=== PATIENT | female | born 1960 | race Two or more races ===

== ENCOUNTER 2024-07-16 15:44 | Emergency (ER) | payer OTHER ==
[~2024-07-16] VITALS: Ht 172.7 cm; Wt 77.3 kg
[2024-07-16 15:48] VITALS: BP 140/79
[2024-07-16 16:27] LABS: Basophils # (auto) 0 10 ^3/uL (0-0.2); Basophils % (auto) 0.7 % (0.0-2.0); Eosinophils # (auto) 0.1 10 ^3/uL (0-0.8); Eosinophils % (auto) 1.1 % (0.0-7.0); Hematocrit 41.1 % (36.0-46.0); Hemoglobin 13.8 g/dL (12.2-16.2); Lymphocytes # (auto) 2.9 10 ^3/uL (0.4-5.4); Lymphocytes % (auto) 45.3 % (10.0-50.0); Mean Corpuscular Hemoglobin 30.4 pg (28.0-32.0); Mean Corpuscular Hgb Conc. 33.6 g/dL (32.0-36.0); Mean Corpuscular Volume 90.6 fL (80.0-100.0); Monocytes # (auto) 0.4 10 ^3/uL (0-1.3); Monocytes % (auto) 6.6 % (0.0-12.0); Neutrophils % (auto) 46.3 % (37.0-80.0); Nucleated Red Blood Cells % 0.1 %; Red Blood Cells 4.53 10^6/uL (4.0-5.20); Red Cell Distribution Width 13.8 % (11.8-14.3); White Blood Cell 6.4 10^3/uL (4.4-10.8)
[2024-07-16 16:44] LABS: Alanine Aminotransferase 14 U/L (7-40); Albumin 4.1 g/dL (3.2-4.8); Alkaline Phosphatase 59 U/L (46-116); Anion Gap 4 (5-15); Aspartate Aminotransferase 15 U/L (13-40); BUN/Creatinine Ratio 12.2 (10.0-20.0); Blood Urea Nitrogen 11 mg/dL (9-23); Calcium 9.2 mg/dL (8.7-10.4); Carbon Dioxide 29 mmol/L (20-30); Chloride 108 mmol/L (98-107); Glucose 109 mg/dL (74-106); Potassium 4.4 mmol/L (3.5-5.1); Sodium 141 mmol/L (136-145)
[2024-07-16 16:45] LABS: Bilirubin, Total 0.3 mg/dL (0.2-1.0); Total Protein 6.4 g/dL (5.7-8.2)
[2024-07-16 17:37] VITALS: PULSE 59
[2024-07-16] MEDS: methylPREDNISolone SOD SUCC 125 MG/2 ML VL IM ONE (19:00)
[2024-07-16] MEDS ORDERED: PRED20TA2 PO (19:03)
[2024-07-16] MEDS ORDERED: ALBU108A5 IN (19:03)
[2024-07-16] MEDS ORDERED: AUG875T PO (19:03)
[2024-07-16] MEDS: ALBUTEROL SULF 2.5 MG/0.5ML(0.5%) NEB SOLN NEB ONE (19:10)
[2024-07-16] MEDS: IPRATROPIUM BROM 0.5 MG/2.5ML INH SOL NEB ONE (19:10)
[2024-07-16 19:11] VITALS: RESP 18; O2SAT 96
== END 2024-07-16 21:14 | disposition home or self-care (01) ==
LOC: ER 15:44
DX: R07.81 Pleurodynia (principal); J18.9 Pneumonia, unspecified organism
CPT/HCPCS: 36415; 71045; 80053; 84484; 85025; 93005; 94640

== ENCOUNTER 2025-11-05 06:50 | Inpatient (IN) | payer OTHER ==
[~2025-11-05] VITALS: Ht 177.8 cm; Wt 91.7 kg
[~2025-11-05 06:50] MED LIST: ALBU108A5 IN; AUG875T PO; PRED20TA2 PO
--- NOTE | 2025-11-05 07:17 | ED.PDOC ---
Altered Mental Status HPI Comments 65-year-old female presents here with acute confusion that began 1 day ago. Granddaughters at bedside who states that 2 days ago patient was having left lower back pain and went to PCP prescribed baclofen. She states there 7 pills missing. She is unclear if this was a results of the baclofen. But she states since then patient has had severe vomiting and diarrhea. She does report dysuria and states that she often gets UTIs. Denies any fever or chills. Patient reports crampy abdominal pain. Chief Complaint: ALOC Time Seen by MD: 06:58 Allergies: Coded Allergies: Hydromorphone (Verified Allergy, Unknown, 07/16/24) Morphine (Verified Allergy, Unknown, 07/16/24) Home Meds Active Scripts Albuterol Sulfate (Albuterol Sulfate Hfa) 108 Mcg/Act Aer, 108 MCG IN TID PRN, #1 AER Prov:NADINE PIZARRO 07/16/24 Prednisone (Prednisone) 20 Mg Tab, 20 MG PO DAILY for 5 Days, #5 MG Prov:NADINE PIZARRO 07/16/24 Amoxicillin & Pot Clavulanate (AUGMENTIN TABLET) 875 Mg Tb, 875 MG PO BID for 7 Days, #14 TAB Prov:NADINE PIZARRO 07/16/24 Mode of Arrival: Ambulatory Past Medical History PAST MEDICAL HISTORY: Angina, CAD Surgical History (Other): Partial colectomy secondary to small-bowel obstruction SENIOR ACCOUNTING SPECIALIST History: No Pertinent SENIOR ACCOUNTING SPECIALIST History Physical Exam Exam Comments Actively retching General Appearance: Moderate Distress, Other (Significant mucous membranes dryness) HEENT: Normal ENT Inspection, Pharynx Normal, TMs Normal Neck: Full Range of Motion, Non-Tender, Normal, Normal Inspection Respiratory: Chest Non-Tender, Lungs Clear, No Accessory Muscle Use, No Respiratory Distress, Normal Breath Sounds Cardiovascular: No Edema, No JVD, No Murmur, No Gallop, Normal Peripheral Pulses, Tachycardia Breast Exam: Deferred Gastrointestinal: No Organomegaly, Non Tender, No Pulsatile Mass, Normal Bowel Sounds, Soft Genitalia: Other (Diffuse abdominal tenderness to palpation) Pelvic: Deferred Rectal: Deferred Extremities: No calf tenderness, Normal capillary refill, Normal inspection, Normal range of motion, Non-tender, No pedal edema Musculoskeletal : Apperance: Normal Neurologic: Alert, Normal Affect, Other (Patient aware of situation and where we are. But does not know what month or year) Cerebellar Function: Tremor Reflexes: Normal Skin: Dry, Normal Color, Warm Lymphatic: No Adenopathy EKG EKG : Comments Rate of [address] changes with diffuse T-wave flattening in multiple leads. Inverted T-wave in V2 V3 V4. Borderline QT prolongation at 487 Was a procedure done? Was a procedure done?: No Differential Diagnosis (ALOC) Differential Diagnosis: Dehydration, Hypoglycemia, DKA, Encephalopathy, Sepsis, Closed Head Injury, Other (Small-bowel obstruction, colitis) X-Ray, Labs, Meds, VS Vital Signs Date Time Temp Pulse Resp B/P (MAP) Pulse Ox O2 Delivery O2 Flow Rate FiO2 11/05/25 13:42 66 17 156/76 (102) 98 11/05/25 11:30 67 18 159/83 (108) 99 11/05/25 10:00 59 16 166/85 (112) 98 11/05/25 09:20 57 11/05/25 08:38 65 12 100 Room Air* 0 21 11/05/25 08:38 98.8 65 12 176/89 (118) 100 98.8 11/05/25 06:53 98.3 82 20 180/115 98 98.3 Lab Test 11/05/25 14:03 11/05/25 10:30 11/05/25 09:30 11/05/25 08:39 Range/Units Troponin I High Sensitivity 87 *H 56 *H 56 *H </=34 ng/L Urine Color Yellow Yellow Urine Clarity Clear Clear Urine pH 5.5 5.0-9.0 Urine Specific [place] 1.023 1.001-1.035 Urine Protein 1+ H Negative Urine Ketones 2+ H Negative Urine Blood Negative Negative /uL Urine Nitrite Negative Negative Urine Bilirubin Negative Negative Urine Urobilinogen Normal Negative mg/dL Urine Leukocyte Esterase Negative Negative /uL Urine RBC 2 0 - 4 /hpf Urine Microscopic WBC 1 0-5 /HPF Urine Squamous Epithelial Cells Few <5 /hpf Urine Bacteria None seen None Seen /hpf Urine Mucus Few None Seen Urine Glucose Normal Normal mg/dL Urine Opiates Screen Neg NEGATIVE Urine Fentanyl Screen Neg NEGATIVE Urine Barbiturates Screen Neg NEGATIVE Urine Phencyclidine Screen Neg NEGATIVE Urine Amphetamines Screen Neg NEGATIVE Urine Benzodiazepines Screen Pos NEGATIVE Urine Cocaine Screen Neg NEGATIVE Urine Cannabinoids Screen Pos NEGATIVE Test 11/05/25 07:30 11/05/25 07:07 Range/Units White Blood Count 11.3 H 4.4-10.8 10^3/uL Red Blood Count 4.78 4.0-5.20 10^6/uL Hemoglobin 14.3 12.2-16.2 g/dL Hematocrit 43.1 36.0-46.0 % Mean Corpuscular Volume 90.1 80.0-100.0 fL Mean Corpuscular Hemoglobin 29.9 28.0-32.0 pg Mean Corpuscular Hemoglobin Concent 33.2 32.0-36.0 g/dL Red Cell Distribution Width 14.3 11.8-14.3 % Platelet Count 235 140-450 10^3/uL Mean Platelet Volume 8.3 6.9-10.8 fL Neutrophils (%) (Auto) 74.6 37.0-80.0 % Lymphocytes (%) (Auto) 18.8 10.0-50.0 % Monocytes (%) (Auto) 5.4 0.0-12.0 % Eosinophils (%) (Auto) 0.4 0.0-7.0 % Basophils (%) (Auto) 0.8 0.0-2.0 % Neutrophils # (Auto) 8.4 1.6-8.6 10 ^3/uL Lymphocytes # (Auto) 2.1 0.4-5.4 10 ^3/uL Monocytes # (Auto) 0.6 0-1.3 10 ^3/uL Eosinophils # (Auto) 0 0-0.8 10 ^3/uL Basophils # (Auto) 0.1 0-0.2 10 ^3/uL Nucleated Red Blood Cells 0.1 % Sodium Level 145 136-145 mmol/L Potassium Level 3.2 L 3.5-5.1 mmol/L Chloride Level 110 H 98-107 mmol/L Carbon Dioxide Level 21 20-31 mmol/L Anion Gap 14 5-15 Blood Urea Nitrogen 8 L 9-23 mg/dL Creatinine 1.10 H 0.550-1.02 mg/dL Glomerular Filtration Rate Calc 55 >90 mL/min BUN/Creatinine Ratio 7.3 L 10.0-20.0 Serum Glucose 148 H 74-106 mg/dL Calcium Level 9.7 8.7-10.4 mg/dL Total Bilirubin 0.8 0.2-1.0 mg/dL Aspartate Amino Transferase (AST) 31 13-40 U/L Alanine Aminotransferase (ALT) 30 7-40 U/L Alkaline Phosphatase 87 46-116 U/L Troponin I High Sensitivity 47 *H </=34 ng/L Total Protein 7.8 5.7-8.2 g/dL Albumin 4.6 3.2-4.8 g/dL POC Glucose 169 H 70-106 mg/dl Current Medications Medications (Trade) Dose Ordered Sig/Galindo Route Start Time Stop Time Status Last Admin Sodium Chloride 2,050 ml @ 2,050 mls/hr ONCE ONCE IV 11/05/25 07:15 11/05/25 08:14 DC 11/05/25 08:20 Ondansetron HCl (Zofran) 4 mg ONCE ONCE IV 11/05/25 07:15 11/05/25 07:16 DC 11/05/25 08:49 Midazolam HCl (Versed Injection) 1 mg ONCE ONCE IV 11/05/25 08:30 11/05/25 08:31 DC 11/05/25 08:49 Potassium Bicarbonate (Klor-Con/Ef) 50 meq ONCE ONCE PO 11/05/25 14:00 11/05/25 14:04 DC 11/05/25 14:29 65-year-old female presents here with altered level of consciousness, and vomiting. Two days ago patient was having back pain and PCP prescribed baclofen. Patient has been taking baclofen and and yesterday started having significant diarrhea and vomiting. She is acutely confused. Daughter states that she saw her come out of the room without pants on. Which is unlike her. On my examination patient is actively retching, does not know the month and year. She is agitated and I have had to give her Versed to calm her down. Mucous membranes are very dry and therefore I have given her 2 L of normal saline here in the ER. Additionally I have given her Zofran. At this time CBC has been done which is unremarkable. CMP demonstrates mild hypokalemia of 3.2, a troponin that has been increasing in value. Urine with 2+ ketones. Consistent with dehydration. CT abdomen pelvis and CT scan of the brain has been done both of which are unremarkable. Chest x-ray with no evidence of acute pathology. At this time Dr. Avelar was evaluated the patient. Initially felt patient was safe to go home. However patient began have active emesis soon af ter an up trending troponin. There is concern for possible baclofen toxicity. At this time Dr. Pollard was admitted with the patient. Time of 1ST Reevaluation: 11:11 Reevaluation 1ST: Improved Patient Education/Counseling: Diagnosis, Treatment Family Education/Counseling: Diagnosis, Treatment SEPSIS Sepsis Screen Date sepsis recognized/suspect: Nov 05, 2025 Time Sepsis recognized/suspect: 658 Recent Procedure: No On Antibiotic Therapy: No Respiratory Rate >20: No Heart Rate >90: No Temp<36 C (96.8 F) or >38.3 C: No SBP <90 or MAP <65 mmHG: No New Acute Mental Status Change: No Is the patient on CPAP, BIPAP,: No Physician Orders Chest Portable (11/05/25 06:59) Finished Stock Inspector (11/05/25 06:59) Head Without Contrast (11/05/25 06:59) Electrocardigram (11/05/25 07:59) Electrocardigram (11/05/25 09:59) Clostridium Difficile Toxin (11/05/25 07:07) Ct Ab Pel Wo Con-No Oral Or Iv (11/05/25 07:18) Insert/Manage Urinary Catheter QSHIFT (11/05/25 09:32) Urine Bacterial Culture (11/05/25 09:32) Vital Signs Date Time Temp Pulse Resp B/P (MAP) Pulse Ox O2 Delivery O2 Flow Rate FiO2 11/05/25 13:42 66 17 156/76 (102) 98 11/05/25 11:30 67 18 159/83 (108) 99 11/05/25 10:00 59 16 166/85 (112) 98 11/05/25 09:20 57 11/05/25 08:38 65 12 100 Room Air* 0 21 11/05/25 08:38 98.8 65 12 176/89 (118) 100 98.8 11/05/25 06:53 98.3 82 20 180/115 98 98.3 Laboratory Tests Test 11/05/25 07:30 White Blood Count 11.3 10^3/uL (4.4-10.8) H Medications Medications Dose Ordered Sig/Galindo Route Start Time Stop Time Status Last Admin Dose Admin Midazolam HCl 1 mg ONCE ONCE IV 11/05/25 08:30 11/05/25 08:31 DC 11/05/25 08:49 Ondansetron HCl 4 mg ONCE ONCE IV 11/05/25 07:15 11/05/25 07:16 DC 11/05/25 08:49 Potassium Bicarbonate 50 meq ONCE ONCE PO 11/05/25 14:00 11/05/25 14:04 DC 11/05/25 14:29 Sodium Chloride 2,050 ml @ 2,050 mls/hr ONCE ONCE IV 11/05/25 07:15 11/05/25 08:14 DC 11/05/25 08:20 Departure 1 Departure Time of Disposition: 17:19 Impression: Primary Impression: Altered mental status Qualified Codes: R40.4 - Transient alteration of awareness Additional Impressions: Vomiting Qualified Codes: R11.10 - Vomiting, unspecified Elevated troponin I measurement Baclofen overdose Qualified Codes: T42.8X1A - Poisoning by antiparkinsonism drugs and other central muscle-tone depressants, accidental (unintentional), initial encounter Dehydration Disposition: ADMITTED INPATIENT Condition: Fair Critical Care Note Critical Care Time?: No Stability Stability form required: No Heart Score Heart Score: Heart Score Response (Comments) Value History N/A 0 EKG N/A 0 Age N/A 0 Risk Factors N/A 0 Troponin N/A 0 Total 0 ELIZA GAITAN MD Nov 05, 2025 07:17
[2025-11-05 07:46] LABS: Hematocrit 43.1 % (36.0-46.0); Hemoglobin 14.3 g/dL (12.2-16.2); Mean Corpuscular Hemoglobin 29.9 pg (28.0-32.0); Mean Corpuscular Volume 90.1 fL (80.0-100.0); Nucleated Red Blood Cells % 0.1 %
[2025-11-05 07:58] LABS: Alanine Aminotransferase 30 U/L (7-40); Albumin 4.6 g/dL (3.2-4.8); Alkaline Phosphatase 87 U/L (46-116); Anion Gap 14 (5-15); BUN/Creatinine Ratio 7.3 (10.0-20.0); Bilirubin, Total 0.8 mg/dL (0.2-1.0); Calcium 9.7 mg/dL (8.7-10.4); Carbon Dioxide 21 mmol/L (20-31); Total Protein 7.8 g/dL (5.7-8.2)
[2025-11-05 08:03] LABS: Chloride 110 mmol/L (98-107); Potassium 3.2 mmol/L (3.5-5.1); Sodium 145 mmol/L (136-145)
[2025-11-05 08:04] LABS: Blood Urea Nitrogen 8 mg/dL (9-23); Glucose 148 mg/dL (74-106)
[2025-11-05] MEDS: SODIUM CHLORIDE 0.9% 2,050 ML IV ONE (08:20)
[2025-11-05 08:38] VITALS: PULSE 65; RESP 12; O2SAT 100
[2025-11-05] MEDS: MIDAZOLAM HCL 2MG/2ML 2ml VIAL (1mg/ml) IV ONE (08:49)
[2025-11-05] MEDS: ONDANSETRON HCL 4 MG/2 ML VIAL IV ONE (08:49)
--- NOTE | 2025-11-05 09:20 | ECG ---
[facility] Test Date: 2025-11-05 Test Time: 09:18:00 Pat Name: DRU TEJADA Department: ED Room: 0251T Gender: F Pony Worker: DEVONTE : 1960 Requested By: ELIZA GAITAN Order Number: [id number] Reading MD: Toribio Fournier Measurements Intervals [place] Rate: 57 P: 52 CT: 145 QRS: -56 QRSD: 102 T: -12 QT: 500 QTc: 487 Interpretive Statements Sinus rhythm LAD, consider left anterior fascicular block Nonspecific T abnormalities, anterior leads Borderline prolonged QT interval Electronically Signed On 11-11-2025 18:56:10 PST by Toribio Fournier Please click the below link to view image of tracing.
--- NOTE | 2025-11-05 09:41 | DVH ---
CLINICAL HISTORY: Mental status change. TECHNIQUE: Helical scanning was performed of the head from the skull base to the vertex. Multiplanar reconstructions were performed. This exam was performed according to our departmental dose optimization program. Up-to-date CT equipment and radiation dose reduction techniques are utilized as appropriate. CTDI 48 DLP 1078 COMPARISON: None FINDINGS: There is no evidence for acute intracranial hemorrhage, acute ischemic changes, mass, mass effect, or extra-axial fluid collection. There is no hydrocephalus or midline shift. There is no effacement of the cerebral sulci and basal subarachnoid cisterns. The ortiz-white matter differentiation is well maintained. The imaged paranasal sinuses are clear. IMPRESSION: NO ACUTE INTRACRANIAL ABNORMALITY SEEN.
--- NOTE | 2025-11-05 09:51 | DVH ---
CLINICAL HISTORY: Rule out small-bowel obstruction TECHNIQUE: CT of the abdomen and pelvis was performed without IV contrast. This exam was performed according to our departmental dose optimization program. Up-to-date CT equipment and radiation dose reduction techniques are utilized as appropriate. CTDI 21 DLP 1200 COMPARISON: None FINDINGS: Abdomen/Pelvis: The adrenal glands, pancreas, kidneys, and bladder are grossly unremarkable. The spleen is elongated and enlarged, measuring 15.2 cm in diameter. There is diffuse hepatic steatosis. The gallbladder and uterus are absent. The abdominal aorta is normal in course and caliber. There are mild aortic atherosclerotic calcifications. There is no free intraperitoneal air or fluid. There is no enlarged abdominal pelvic lymph node. There is no bowel wall thickening or dilatation. There has been previous colon resection with reanastomosis. Other: The imaged lower thorax demonstrates minimal bilateral lower lobe atelectasis. No acute osseous abnormality is evident. Impression: No acute noncontrast CT abnormality in the abdomen/pelvis. Diffuse hepatic steatosis. Splenomegaly. Hysterectomy. Cholecystectomy. Colon resection with reanastomosis.
[2025-11-05 10:03] LABS: Urine Protein, UAD 1+ (Negative)
[2025-11-05 10:23] LABS: Opiate Scree,Urine Neg (NEGATIVE)
[2025-11-05 10:31] LABS: Amphetamine Screen, Urine Neg (NEGATIVE); Barbiturate Scree,Urine Neg (NEGATIVE); Benzodiazephine Screen, Urine Pos (NEGATIVE); Cannabinoid Screen, Urine Pos (NEGATIVE); Cocaine Screen, Urine Neg (NEGATIVE); Phencyclidine Screen, Urine Neg (NEGATIVE)
--- NOTE | 2025-11-05 10:42 | DVH ---
CHEST RADIOGRAPH Indication: Rule out pneumonia Technique: Single frontal view of the chest was obtained COMPARISON: XY CHEST PORTABLE on DOS: 07/16/24 FINDINGS: Lines and Tubes: None Lungs: Clear Pleura: No effusion. No pneumothorax. Cardiomediastinal contours: Unremarkable Bones: Unremarkable IMPRESSION: No acute disease.
--- NOTE | 2025-11-05 13:58 | DVHINCON2 ---
Date Seen: Nov 05, 2025 Allergies: Coded Allergies: Hydromorphone (Verified Allergy, Unknown, 07/16/24) Morphine (Verified Allergy, Unknown, 07/16/24) Home Meds Active Scripts Albuterol Sulfate (Albuterol Sulfate Hfa) 108 Mcg/Act Aer, 108 MCG IN TID PRN, #1 AER Prov:NADINE PIZARRO SQUAD SERGEANT 07/16/24 Prednisone (Prednisone) 20 Mg Tab, 20 MG PO DAILY for 5 Days, #5 MG Prov:ANJELICA PIZARRODIEGO Cantu SQUAD SERGEANT 07/16/24 Amoxicillin & Pot Clavulanate (AUGMENTIN TABLET) 875 Mg Tb, 875 MG PO BID for 7 Days, #14 TAB Prov:NADINE PIZARRO SQUAD SERGEANT 07/16/24 Vital Signs Vital Signs Date Time Temp Pulse Resp B/P (MAP) Pulse Ox O2 Delivery O2 Flow Rate FiO2 11/05/25 13:42 66 17 156/76 (102) 98 11/05/25 08:38 Room Air* 0 21 11/05/25 08:38 98.8 98.8 Labs/Diagnostic Data Labs Test 11/05/25 10:30 11/05/25 09:30 11/05/25 07:30 11/05/25 07:07 Range/Units Troponin I High Sensitivity 56 *H </=34 ng/L Urine Color Yellow Yellow Urine Clarity Clear Clear Urine pH 5.5 5.0-9.0 Urine Specific [place] 1.023 1.001-1.035 Urine Protein 1+ H Negative Urine Ketones 2+ H Negative Urine Blood Negative Negative /uL Urine Nitrite Negative Negative Urine Bilirubin Negative Negative Urine Urobilinogen Normal Negative mg/dL Urine Leukocyte Esterase Negative Negative /uL Urine RBC 2 0 - 4 /hpf Urine Microscopic WBC 1 0-5 /HPF Urine Squamous Epithelial Cells Few <5 /hpf Urine Bacteria None seen None Seen /hpf Urine Mucus Few None Seen Urine Glucose Normal Normal mg/dL Urine Opiates Screen Neg NEGATIVE Urine Fentanyl Screen Neg NEGATIVE Urine Barbiturates Screen Neg NEGATIVE Urine Phencyclidine Screen Neg NEGATIVE Urine Amphetamines Screen Neg NEGATIVE Urine Benzodiazepines Screen Pos NEGATIVE Urine Cocaine Screen Neg NEGATIVE Urine Cannabinoids Screen Pos NEGATIVE White Blood Count 11.3 H 4.4-10.8 10^3/uL Red Blood Count 4.78 4.0-5.20 10^6/uL Hemoglobin 14.3 12.2-16.2 g/dL Hematocrit 43.1 36.0-46.0 % Mean Corpuscular Volume 90.1 80.0-100.0 fL Mean Corpuscular Hemoglobin 29.9 28.0-32.0 pg Mean Corpuscular Hemoglobin Concent 33.2 32.0-36.0 g/dL Red Cell Distribution Width 14.3 11.8-14.3 % Platelet Count 235 140-450 10^3/uL Mean Platelet Volume 8.3 6.9-10.8 fL Neutrophils (%) (Auto) 74.6 37.0-80.0 % Lymphocytes (%) (Auto) 18.8 10.0-50.0 % Monocytes (%) (Auto) 5.4 0.0-12.0 % Eosinophils (%) (Auto) 0.4 0.0-7.0 % Basophils (%) (Auto) 0.8 0.0-2.0 % Neutrophils # (Auto) 8.4 1.6-8.6 10 ^3/uL Lymphocytes # (Auto) 2.1 0.4-5.4 10 ^3/uL Monocytes # (Auto) 0.6 0-1.3 10 ^3/uL Eosinophils # (Auto) 0 0-0.8 10 ^3/uL Basophils # (Auto) 0.1 0-0.2 10 ^3/uL Nucleated Red Blood Cells 0.1 % Sodium Level 145 136-145 mmol/L Potassium Level 3.2 L 3.5-5.1 mmol/L Chloride Level 110 H 98-107 mmol/L Carbon Dioxide Level 21 20-31 mmol/L Anion Gap 14 5-15 Blood Urea Nitrogen 8 L 9-23 mg/dL Creatinine 1.10 H 0.550-1.02 mg/dL Glomerular Filtration Rate Calc 55 >90 mL/min BUN/Creatinine Ratio 7.3 L 10.0-20.0 Serum Glucose 148 H 74-106 mg/dL Calcium Level 9.7 8.7-10.4 mg/dL Total Bilirubin 0.8 0.2-1.0 mg/dL Aspartate Amino Transferase (AST) 31 13-40 U/L Alanine Aminotransferase (ALT) 30 7-40 U/L Alkaline Phosphatase 87 46-116 U/L Total Protein 7.8 5.7-8.2 g/dL Albumin 4.6 3.2-4.8 g/dL POC Glucose 169 H 70-106 mg/dl OBINNA RUIZ MD Nov 05, 2025 13:58
[2025-11-05] MEDS: POTASSIUM EFFERVESENT TAB 25 MEQ PO ONE (14:29)
[2025-11-05] MEDS ORDERED: NITROGLYCERIN 0.4 MG SL TAB SL PRN (15:30)
--- NOTE | 2025-11-05 15:37 | DVHHP2 ---
History of Present Illness Reason for Visit: Altered mental status with a overdose of baclofen History of Present Illness 65-year-old female with a no significant past medical history besides she has a acute on chronic back pain was seen in the urgent care was given baclofen for home. Patient's granddaughter found her altered mental status with a missing seven baclofen tablets. Eventually patient was brought to ER. Patient is currently denies any chest pain does complain of some diarrhea as well as vomiting but denies any abdominal pain. Patient's denies any known history of CAD. Musculoskeletal: Chronic low back pain Past Surgical History: None, Cholecystectomy, Hysterectomy, Other (History of some colon resection.) Smoke: No ALCOHOL: none Review of Systems Review of Systems Twelve review of system are negative besides mentioned above. 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 Labs/Xrays Labs Test 11/05/25 14:03 11/05/25 09:30 11/05/25 07:30 11/05/25 07:07 Range/Units Troponin I High Sensitivity 87 *H </=34 ng/L Urine Color Yellow Yellow Urine Clarity Clear Clear Urine pH 5.5 5.0-9.0 Urine Specific [place] 1.023 1.001-1.035 Urine Protein 1+ H Negative Urine Ketones 2+ H Negative Urine Blood Negative Negative /uL Urine Nitrite Negative Negative Urine Bilirubin Negative Negative Urine Urobilinogen Normal Negative mg/dL Urine Leukocyte Esterase Negative Negative /uL Urine RBC 2 0 - 4 /hpf Urine Microscopic WBC 1 0-5 /HPF Urine Squamous Epithelial Cells Few <5 /hpf Urine Bacteria None seen None Seen /hpf Urine Mucus Few None Seen Urine Glucose Normal Normal mg/dL Urine Opiates Screen Neg NEGATIVE Urine Fentanyl Screen Neg NEGATIVE Urine Barbiturates Screen Neg NEGATIVE Urine Phencyclidine Screen Neg NEGATIVE Urine Amphetamines Screen Neg NEGATIVE Urine Benzodiazepines Screen Pos NEGATIVE Urine Cocaine Screen Neg NEGATIVE Urine Cannabinoids Screen Pos NEGATIVE White Blood Count 11.3 H 4.4-10.8 10^3/uL Red Blood Count 4.78 4.0-5.20 10^6/uL Hemoglobin 14.3 12.2-16.2 g/dL Hematocrit 43.1 36.0-46.0 % Mean Corpuscular Volume 90.1 80.0-100.0 fL Mean Corpuscular Hemoglobin 29.9 28.0-32.0 pg Mean Corpuscular Hemoglobin Concent 33.2 32.0-36.0 g/dL Red Cell Distribution Width 14.3 11.8-14.3 % Platelet Count 235 140-450 10^3/uL Mean Platelet Volume 8.3 6.9-10.8 fL Neutrophils (%) (Auto) 74.6 37.0-80.0 % Lymphocytes (%) (Auto) 18.8 10.0-50.0 % Monocytes (%) (Auto) 5.4 0.0-12.0 % Eosinophils (%) (Auto) 0.4 0.0-7.0 % Basophils (%) (Auto) 0.8 0.0-2.0 % Neutrophils # (Auto) 8.4 1.6-8.6 10 ^3/uL Lymphocytes # (Auto) 2.1 0.4-5.4 10 ^3/uL Monocytes # (Auto) 0.6 0-1.3 10 ^3/uL Eosinophils # (Auto) 0 0-0.8 10 ^3/uL Basophils # (Auto) 0.1 0-0.2 10 ^3/uL Nucleated Red Blood Cells 0.1 % Sodium Level 145 136-145 mmol/L Potassium Level 3.2 L 3.5-5.1 mmol/L Chloride Level 110 H 98-107 mmol/L Carbon Dioxide Level 21 20-31 mmol/L Anion Gap 14 5-15 Blood Urea Nitrogen 8 L 9-23 mg/dL Creatinine 1.10 H 0.550-1.02 mg/dL Glomerular Filtration Rate Calc 55 >90 mL/min BUN/Creatinine Ratio 7.3 L 10.0-20.0 Serum Glucose 148 H 74-106 mg/dL Calcium Level 9.7 8.7-10.4 mg/dL Total Bilirubin 0.8 0.2-1.0 mg/dL Aspartate Amino Transferase (AST) 31 13-40 U/L Alanine Aminotransferase (ALT) 30 7-40 U/L Alkaline Phosphatase 87 46-116 U/L Total Protein 7.8 5.7-8.2 g/dL Albumin 4.6 3.2-4.8 g/dL POC Glucose 169 H 70-106 mg/dl SEPSIS Sepsis Screen Date sepsis recognized/suspect: Nov 05, 2025 Time Sepsis recognized/suspect: 0800 Recent Procedure: No On Antibiotic Therapy: No Respiratory Rate >20: No Heart Rate >90: No Temp<36 C (96.8 F) or >38.3 C: No SBP <90 or MAP <65 mmHG: No New Acute Mental Status Change: Yes Is the patient on CPAP, BIPAP,: No Physician Orders Insert/Manage Urinary Catheter QSHIFT (11/05/25 09:32) Urine Bacterial Culture (11/05/25 09:32) Admit (11/05/25:) Code Status (11/05/25:29) 2 Gm Sodium Diet (11/05/25 Dinner) 0.9% Ns 1000 Ml (11/05/25 15:30) Ondansetron Hcl (Zofran) (11/05/25 15:30) Enoxaparin Sodium (Lovenox) (11/06/25 10:00) Fall Risk Precautions In Place QSHIFT (11/05/25 15:29) Complete Blood Count (11/06/25 04:00) Comprehensive Metabolic Panel (11/06/25 04:00) Echo 2d Mode Cardiac Dop (11/05/25:29) Condition: Stable (11/05/25 15:29) Acetaminophen Tablet (Tylenol Tablet) (11/05/25 15:30) Nitroglycerin Sublingual (Ntrostat Subli (11/05/25 15:30) Morphine Sulfate Injection (11/05/25 15:30) Stat Ekg For Chest Pain (11/05/25:29) Notify Md Of Changes From Base (11/05/25 15:29) Terrazzo Worker Apprentice For 24 Hours (11/05/25 15:29) Emergency Dysrhythmia Protocol (11/05/25 15:29) Rhythm Strips Once Every Shift (11/05/25 15:29) Oxygen By Nasal Cannula (11/05/25 15:29) * Cardiology Consult (11/05/25 15:29) Vital Signs Date Time Temp Pulse Resp B/P (MAP) Pulse Ox O2 Delivery O2 Flow Rate FiO2 11/05/25 13:42 66 17 156/76 (102) 98 11/05/25 11:30 67 18 159/83 (108) 99 11/05/25 10:00 59 16 166/85 (112) 98 11/05/25 09:20 57 11/05/25 08:38 65 12 100 Room Air* 0 21 11/05/25 08:38 98.8 65 12 176/89 (118) 100 98.8 Laboratory Tests Test 11/05/25 07:30 White Blood Count 11.3 10^3/uL (4.4-10.8) H Medications Medications Dose Ordered Sig/Galindo Route Start Time Stop Time Status Last Admin Dose Admin Midazolam HCl 1 mg ONCE ONCE IV 11/05/25 08:30 11/05/25 08:31 DC 11/05/25 08:49 1 MG Ondansetron HCl 4 mg ONCE ONCE IV 11/05/25 07:15 11/05/25 07:16 DC 11/05/25 08:49 4 MG Potassium Bicarbonate 50 meq ONCE ONCE PO 11/05/25 14:00 11/05/25 14:04 DC 11/05/25 14:29 50 MEQ Sodium Chloride 2,050 ml @ 2,050 mls/hr ONCE ONCE IV 11/05/25 07:15 11/05/25 08:14 DC 11/05/25 08:20 2,050 MLS/HR Assessment/Plan Assessment/Plan 65-year-old female with a known history of previous colon resection status post anastomosis, acute on chronic back pain was recently seen at urgent care was given some baclofen medications for pain presented to the hospital with a altered mental status found to have 1. Acute toxic encephalopathy suspect baclofen overdose 2. Drug overdose with the baclofen 3. Vomiting and diarrhea without any CT evidence of acute pathology 4. Incidental finding of elevated troponin suspect demand ischemia 5. Acute on chronic back pain 6. Hepatic steatosis -admit to telemetry, 2D echo, cardiology consultation, IV hydration, diet as tolerated. Hold off on baclofen for Plan discussed with: Patient, Other My Orders Orders - OBINNA RUIZ MD Procedure Category Date Status Time Admit ADMIT 11/05/25 Transmitted 15:29 Code Status CODE 11/05/25 Transmitted 15:29 2 Gm Sodium Diet DIET 11/05/25 Transmitted Dinner 0.9% Ns 1000 Ml PHA 11/05/25 Transmitted 15:30 Ondansetron Hcl PHA 11/05/25 Transmitted (Zofran) 15:30 Enoxaparin Sodium PHA 11/06/25 Transmitted (Lovenox) 10:00 Fall Risk Precautions JUDITH 11/05/[address] 15:29 Complete Blood Count LAB 11/06/25 Verified 04:00 Comprehensive LAB 11/06/25 Verified Metabolic Panel 04:00 Echo 2d Mode Cardiac US 11/05/25 Transmitted DOP 15:29 Condition: Stable JUDITH 11/05/25 Transmitted 15:29 Acetaminophen Tablet PHA 11/05/25 Transmitted (Tylenol Tablet) 15:30 Nitroglycerin PHA 11/05/25 Transmitted Sublingual (Ntrostat 15:30 Morphine Sulfate PHA 11/05/25 Transmitted Injection 15:30 Stat Ekg For Chest JUDITH 11/05/25 Transmitted Pain 15:29 Notify Md Of Changes [facility] 11/05/25 Transmitted From Base 15:29 Terrazzo Worker Apprentice For JUDITH 11/05/25 Transmitted 24 Hours 15:29 Emergency Dysrhythmia JUDITH 11/05/25 Transmitted Protocol 15:29 Rhythm Strips Once [facility] 11/05/25 Transmitted Every Shift 15:29 Oxygen By Nasal RT 11/05/25 Transmitted Cannula 15:29 * Cardiology Consult CONS 11/05/25 Transmitted 15:29 Date of Service: Nov 05, 2025 Billing Provider: OBINNA RUIZ MD Common Visit Codes: NOT BILLABLE OBINNA RUIZ MD Nov 05, 2025 15:37
[2025-11-05] MEDS ORDERED: MORPHINE SULFATE 4 MG/ML SYR/VIAL IV PRN (15:45)
[2025-11-05 16:00] VITALS: PULSE 59; RESP 17; O2SAT 95
[2025-11-05] MEDS: SODIUM CHLORIDE 0.9% 1,000 ML IV SCH (16:00)
[2025-11-05] MEDS: ONDANSETRON HCL 4 MG/2 ML VIAL IV PRN (16:06)
[2025-11-05 19:56] VITALS: PULSE 53; RESP 18; O2SAT 97
[2025-11-06] MEDS: hydrALAZINE HCL 20 MG/ML VL IV PRN (02:34)
[2025-11-06 03:05] LABS: Hematocrit 37.5 % (36.0-46.0); Hemoglobin 12.6 g/dL (12.2-16.2); Mean Corpuscular Hemoglobin 30.3 pg (28.0-32.0); Mean Corpuscular Volume 90.0 fL (80.0-100.0); Nucleated Red Blood Cells % 0.0 %
[2025-11-06 03:28] LABS: Alanine Aminotransferase 23 U/L (7-40); Albumin 3.7 g/dL (3.2-4.8); Alkaline Phosphatase 68 U/L (46-116); Anion Gap 11 (5-15); BUN/Creatinine Ratio 7.2 (10.0-20.0); Carbon Dioxide 20 mmol/L (20-31); Glucose 101 mg/dL (74-106); Sodium 140 mmol/L (136-145); Total Protein 6.4 g/dL (5.7-8.2)
[2025-11-06 03:29] LABS: Bilirubin, Total 0.8 mg/dL (0.2-1.0)
[2025-11-06 03:31] LABS: Blood Urea Nitrogen 6 mg/dL (9-23); Calcium 8.3 mg/dL (8.7-10.4); Chloride 109 mmol/L (98-107); Potassium 3.4 mmol/L (3.5-5.1)
[2025-11-06] MEDS: ENOXAPARIN SOD 40 MG/0.4 ML SYRINGE SC SCH (10:40)
--- NOTE | 2025-11-06 13:50 | DVHPN2 ---
Subjective Patient is complaining of watery diarrhea denies any fevers chills. Changes from previous H/P or p: No Changes Objective Vitals Vital Signs Date Time Temp Pulse Resp B/P (MAP) Pulse Ox O2 Delivery O2 Flow Rate FiO2 11/06/25 11:30 97.6 82 20 141/93 (109) 99 97.6 11/06/25 11:00 Room Air* 0 21 Exam HEENT pupils are reactive Neck is supple CV is S1-S2 regular rate and rhythm Respiratory are clear GI positive bowel sound , mildly tender diffusely with a no guarding no rigidity. 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 Medications Current Medications Medications Dose Ordered Sig/Galindo Route Start Time Stop Time Status Last Admin Dose Admin Sodium Chloride 1,000 ml @ 120 mls/hr Q8H20M IV 11/05/25 15:30 11/06/25 08:23 120 MLS/HR Ondansetron HCl 4 mg Q4HP PRN IV 11/05/25 15:30 11/05/25 16:06 4 MG Enoxaparin Sodium 40 mg DAILY SC 11/06/25 10:00 11/06/25 10:40 40 MG Acetaminophen 650 mg Q6HP PRN PO 11/05/25 15:30 Nitroglycerin 0.4 mg Q5MINP PRN SL 11/05/25 15:30 Morphine Sulfate 2 mg Q30M PRN IV 11/05/25 15:45 Hold Hydralazine HCl 10 mg Q6HP PRN IV 11/05/25 19:45 11/06/25 02:34 10 MG Cholestyramine Resin 4 gm Q12HR@11,23 PO 11/06/25 13:15 Tramadol HCl 100 mg Q6HPRN PRN PO 11/06/25 13:30 Laboratory Results Laboratory Tests 11/06/25 02:32 Chemistry Test 11/06/25 02:32 Albumin 3.7 g/dL (3.2-4.8) Calcium Level 8.3 mg/dL (8.7-10.4) L Total Protein 6.4 g/dL (5.7-8.2) LFT Test 11/06/25 02:32 Alanine Aminotransferase (ALT) 23 U/L (7-40) Alkaline Phosphatase 68 U/L (46-116) Aspartate Amino Transferase (AST) 30 U/L (13-40) Total Bilirubin 0.8 mg/dL (0.2-1.0) Urinalysis Test 11/05/25 09:30 Urine Color Yellow (Yellow) Urine Clarity Clear (Clear) Urine pH 5.5 (5.0-9.0) Urine Specific [place] 1.023 (1.001-1.035) Urine Protein 1+ (Negative) H Urine Ketones 2+ (Negative) H Urine Blood Negative /uL (Negative) Urine Nitrite Negative (Negative) Urine Bilirubin Negative (Negative) Urine Urobilinogen Normal mg/dL (Negative) Urine Leukocyte Esterase Negative /uL (Negative) Urine RBC 2 /hpf (0 - 4) Urine Microscopic WBC 1 /HPF (0-5) Urine Squamous Epithelial Cells Few /hpf (<5) Urine Bacteria None seen /hpf (None Seen) Urine Mucus Few (None Seen) Urine Glucose Normal mg/dL (Normal) Microbiology Microbiology Date/Time Source Procedure Growth Status 11/05/25 09:30 Urine - Catheterized Urine Culture - Preliminary No growth Resulted Assessment/Plan Assessment/Plan 65-year-old female with a known history of previous colon resection status post anastomosis, acute on chronic back pain was recently seen at urgent care was given some baclofen medications for pain presented to the hospital with a altered mental status found to have 1. Acute toxic encephalopathy suspect baclofen overdose 2. Drug overdose with the baclofen 3. Vomiting and diarrhea without any CT evidence of acute pathology 4. Incidental finding of elevated troponin suspect demand ischemia 5. Acute on chronic back pain 6. Hepatic steatosis 7. Diarrhea -add Questran, clear liquid diet and advance as tolerated, we will follow up Cardiology recommendations. Plan discussed with: Patient My Orders Orders - OBINNA RUIZ MD Procedure Category Date Status Time Admit ADMIT 11/05/25 Transmitted 15:29 Code Status CODE 11/05/25 Transmitted 15:29 2 Gm Sodium Diet DIET 11/05/25 Transmitted Dinner Sodium Chloride 0.9% PHA 11/05/25 In Process 15:30 Ondansetron Hcl PHA 11/05/25 In Process (Zofran) 15:30 Enoxaparin Sodium PHA 11/06/25 In Process (Lovenox) 10:00 Fall Risk Precautions JUDITH 11/05/[address] 15:29 Condition: Stable JUDITH 11/05/25 In Process 15:29 Acetaminophen Tablet PHA 11/05/25 In Process (Tylenol Tablet) 15:30 Nitroglycerin PHA 11/05/25 In Process Sublingual (Ntrostat 15:30 Stat Ekg For Chest JUDITH 11/05/25 In Process Pain 15:29 Notify Of Changes [facility] 11/05/25 In Process From Base 15:29 Portable Sawyer For [facility] 11/05/25 In Process 24 Hours 15:29 Emergency Dysrhythmia JUDITH 11/05/25 In Process Protocol 15:29 Rhythm Strips Once [facility] 11/05/25 In Process Every Shift 15:29 Oxygen By Nasal RT 11/05/25 Transmitted Cannula 15:29 * Cardiology Consult CONS 11/05/25 Transmitted 15:29 Morphine Sulfate PHA 11/05/25 In Process Injection 15:45 Echo 2d Mode Cardiac US 11/06/25 Logged DOP 15:29 Cholestyramine Powder PHA 11/06/25 In Process (Questran Powder) 13:15 Tramadol Hcl (Ultram) PHA 11/06/25 In Process 13:30 Date of Service: Nov 06, 2025 Billing Provider: OBINNA RUIZ MD Common Visit Codes: NOT BILLABLE OBINNA RUIZ MD Nov 06, 2025 13:50
[2025-11-06] MEDS: CHOLESTYRAMINE 4 GM POWDER PO SCH (15:22)
[2025-11-06 17:51] VITALS: BP 168/99; PULSE 67; RESP 18; TEMP 98.6; O2SAT 98
[2025-11-06 18:01] VITALS: BP 168/99; PULSE 122; RESP 18; TEMP 99; O2SAT 97
[2025-11-06 20:00] VITALS: PULSE 76; PULSE 90; RESP 18; O2SAT 95
[2025-11-06] MEDS: ACETAMINOPHEN 325 MG TAB PO PRN (20:53)
[2025-11-06 21:00] VITALS: BP 151/95; PULSE 90; RESP 18; TEMP 99.2; O2SAT 95
[2025-11-07] VITALS (8 sets, daily range): BP systolic 134–175; BP diastolic 84–115; PULSE 60–80; RESP 16–19; TEMP 97.7–99.2; O2SAT 92–98
--- NOTE | 2025-11-07 11:30 | DVHSR ---
APPROVED REPORT EXAM: LIMITED Two-dimensional and M-mode echocardiogram with Doppler and color Doppler. Blood Pressure: 153/79 mmHg INDICATION Elevated Troponin RISK FACTORS Height: 5' 10", Weight: 206 DIMENSIONS LVDd 4.9 (3.8-5.7cm) LA (2D) (1.9-4.0cm) Aortic Root 3.4 (2.0-3.7cm) LVDs 3.3 (2.5-4.0cm) LA (MM) (1.9-4.0cm) Aortic Cusp Exc 1.9 (1.5-2.0cm) EF (%) 60.0 (55-70%) Rt. Atrium (1.9-4.0cm) Asc. Aorta cm IVSd 1.0 (0.7-1.1cm) RV (D) (1.8-2.4cm) PWd 1.0 (0.7-1.1cm) Mitral Valve Mitral Mitral Stenosis E wave 0.90m/s MV Mean GR. mmHg A wave 1.10m/s MV Peak GR. mmHg E/A ratio 0.8 2D MVA cm2 Aortic Valve Aortic Valve Aortic Stenosis V1 0.90m/s AO Mean GR. 3mmHg V2 1.30m/s AO Peak GR. 7mmHg LVOT Diameter 2.2 (1.8-2.4cm) Doppler LILIAN 2.63cm2 Other Information Quality : Technically Limited Rhythm : Technically limited study due to body habitus, patient moving constantly due to pain. Conclusion 1)Normal right and left ventricle systolic function with estimated ejection fraction of 60%. Normal LV wall motion. Normal LV diastolic function 2)No signifcant valvular pathology was seen
--- NOTE | 2025-11-07 13:29 | ECG ---
[facility] Test Date: 2025-11-06 Test Time: 18:54:31 Pat Name: DRU TEJADA Department: Respiratoy Room: 0251T Gender: F Hvac Engineer: LISA : 1960 Requested By: OBINNA RUIZ Order Number: [id number] Reading MD: Toribio Fournier Measurements Intervals [place] Rate: 69 P: 67 CT: 150 QRS: -52 QRSD: 106 T: -11 QT: 485 QTc: 520 Interpretive Statements Sinus rhythm Left anterior fascicular block Low voltage, precordial leads RSR' in V1 or V2, probably normal variant Nonspecific T abnormalities, diffuse leads Prolonged QT interval Electronically Signed On 11-11-2025 18:24:41 PST by Toribio Fournier Please click the below link to view image of tracing.
--- NOTE | 2025-11-07 17:45 | DVHPN2 ---
Subjective Patient's diarrhea is better, diet as tolerated. Changes from previous H/P or p: No Changes Objective Vitals Vital Signs Date Time Temp Pulse Resp B/P (MAP) Pulse Ox O2 Delivery O2 Flow Rate FiO2 11/07/25 17:00 98.8 68 18 163/91 (115) 98 98.8 11/07/25 08:00 Room Air* 0 N/A Nasal Cannula* Intake/Output Intake and Output 11/07/25 07:00 Intake Total 1360 ml Balance 1360 ml Intake Oral 400 ml IV Total 960 ml # Voids 6 Exam HEENT pupils are reactive Neck is supple CV is S1-S2 regular rate and rhythm Respiratory are clear GI positive bowel sound , mildly tender diffusely with a no guarding no rigidity. 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 Medications Current Medications Medications Dose Ordered Sig/Galindo Route Start Time Stop Time Status Last Admin Dose Admin Sodium Chloride 1,000 ml @ 120 mls/hr Q8H20M IV 11/05/25 15:30 11/07/25 14:00 120 MLS/HR Ondansetron HCl 4 mg Q4HP PRN IV 11/05/25 15:30 11/07/25 15:01 4 MG Enoxaparin Sodium 40 mg DAILY SC 11/06/25 10:00 11/07/25 10:17 40 MG Acetaminophen 650 mg Q6HP PRN PO 11/05/25 15:30 11/07/25 04:19 650 MG Nitroglycerin 0.4 mg Q5MINP PRN SL 11/05/25 15:30 Morphine Sulfate 2 mg Q30M PRN IV 11/05/25 15:45 Hold Hydralazine HCl 10 mg Q6HP PRN IV 11/05/25 19:45 11/07/25 04:32 10 MG Cholestyramine Resin 4 gm Q12HR@11,23 PO 11/06/25 13:15 11/07/25 10:17 4 GM Tramadol HCl 100 mg Q6HPRN PRN PO 11/06/25 13:30 11/07/25 16:19 100 MG Laboratory Results Laboratory Tests 11/06/25 02:32 Urinalysis Test 11/05/25 09:30 Urine Color Yellow (Yellow) Urine Clarity Clear (Clear) Urine pH 5.5 (5.0-9.0) Urine Specific [place] 1.023 (1.001-1.035) Urine Protein 1+ (Negative) H Urine Ketones 2+ (Negative) H Urine Blood Negative /uL (Negative) Urine Nitrite Negative (Negative) Urine Bilirubin Negative (Negative) Urine Urobilinogen Normal mg/dL (Negative) Urine Leukocyte Esterase Negative /uL (Negative) Urine RBC 2 /hpf (0 - 4) Urine Microscopic WBC 1 /HPF (0-5) Urine Squamous Epithelial Cells Few /hpf (<5) Urine Bacteria None seen /hpf (None Seen) Urine Mucus Few (None Seen) Urine Glucose Normal mg/dL (Normal) Microbiology Microbiology Date/Time Source Procedure Growth Status 11/06/25 12:00 Stool Clostridium difficile Toxin Assay - Final Complete 11/05/25 09:30 Urine - Catheterized Urine Culture - Final Complete Assessment/Plan Assessment/Plan 65-year-old female with a known history of previous colon resection status post anastomosis, acute on chronic back pain was recently seen at urgent care was given some baclofen medications for pain presented to the hospital with a altered mental status found to have 1. Acute toxic encephalopathy suspect baclofen overdose 2. Drug overdose with the baclofen 3. Vomiting and diarrhea without any CT evidence of acute pathology 4. Incidental finding of elevated troponin suspect demand ischemia 5. Acute on chronic back pain 6. Hepatic steatosis 7. Diarrhea, resolved -add Questran, clear liquid diet and advance as tolerated, we will follow up Cardiology recommendations. Plan discussed with: Patient My Orders Orders - OBINNA RUIZ MD Procedure Category Date Status Time * Wound Consult CONS 11/07/25 Transmitted * Dietary Consult CONS 11/07/25 Transmitted 13:08 Date of Service: Nov 07, 2025 Billing Provider: OBINNA RUIZ MD Common Visit Codes: NOT BILLABLE OBINNA RUIZ MD Nov 07, 2025 17:45
[2025-11-08] VITALS (8 sets, daily range): BP systolic 136–156; BP diastolic 79–92; PULSE 61–72; RESP 16–18; TEMP 97.6–98.4; O2SAT 95–99
--- NOTE | 2025-11-08 09:19 | ECG ---
[facility] Test Date: 2025-11-06 Test Time: 19:57:50 Pat Name: DRU TEJADA Department: ED Room: [facility]1T A Gender: F Patient Portal Representative: TROY : 1960 Requested By: ELIZA GAITAN Order Number: [id number] Reading MD: Toribio Fournier Measurements Intervals [place] Rate: 95 P: 56 DC: 148 QRS: 84 QRSD: 99 T: 44 QT: 373 QTc: 469 Interpretive Statements Sinus rhythm Borderline right axis deviation Electronically Signed On 11-11-2025 19:11:39 PST by Toribio Fournier Please click the below link to view image of tracing.
[2025-11-08] MEDS: PANTOPRAZOLE 40 MG/10 ML VIAL INJ IV SCH (15:30)
[2025-11-08] MEDS ORDERED: GASTROGRAFIN 30 ML SOL XX ONE (16:00)
[2025-11-08] MEDS: GABAPENTIN 300 MG CAP PO SCH (21:01)
[2025-11-09] VITALS (7 sets, daily range): BP systolic 121–137; BP diastolic 52–92; PULSE 16–66; RESP 15–17; TEMP 36.7; O2SAT 94–97
--- NOTE | 2025-11-09 10:23 | DVHINCON2 ---
Date Seen: Nov 09, 2025 Referring Physician MD Valentino Reason for Consultation Elevated troponin History of Present Illness This is a 65-year-old female who presented to the emergency room with a chief complaint of ALOC. At time of assessment the patient was found A&O x4. She is unable to recall events preceding to admission. Per records she was found ALOC by her granddaughter and suspected to have overdose on baclofen tablets. At time of assessment, she complained of nausea, vomiting, diarrhea, and abdominal cramping. Denies chest pain, SOB, palpitations, diaphoresis, or syncopal events. She has undergone multiple 12 lead electrocardiogram revealing a normal sinus rhythm without evidence of ST-T wave segment changes. Serial troponin levels trended up to 80s ng/L. Significant medical history includes hypertension, thyroid disease, chronic back pain, and obesity. Past Medical History Past medical history reviewed. No other significant than mentioned above. Past Surgical History Hysterectomy Cholecystectomy Colon resection with reanastomosis Family History: Depression G8 MOTHER Diabetes mellitus G8 FATHER Hypercholesterolemia G8 MOTHER Hypertension G8 MOTHER Family History Family history reviewed. Social History Denies the use of illicit drugs, alcohol, or tobacco use. Allergies: Coded Allergies: Hydromorphone (Verified Allergy, Unknown, 07/16/24) Morphine (Verified Allergy, Unknown, 07/16/24) Home Meds Active Scripts Albuterol Sulfate (Albuterol Sulfate Hfa) 108 Mcg/Act Aer, 108 MCG IN TID PRN, #1 AER Prov:NADINE PIZARRO 07/16/24 Prednisone (Prednisone) 20 Mg Tab, 20 MG PO DAILY for 5 Days, #5 MG Prov:NADINE PIZARRO 07/16/24 Amoxicillin & Pot Clavulanate (AUGMENTIN TABLET) 875 Mg Tb, 875 MG PO BID for 7 Days, #14 TAB Prov:NADINE PIZARRO 07/16/24 Home Meds Home medications reviewed. Current Medications Current Medications Medications (Trade) Dose Ordered Sig/Galindo Route PRN Reason Start Time Stop Time Status Last Admin Pantoprazole Sodium (Protonix) 40 mg BID IV 11/08/25 15:30 11/08/25 21:01 Metoprolol Succinate (Toprol Xl) 25 mg DAILY PO 11/09/25 10:00 Gabapentin (Neurontin Capsule) 600 mg DAILY PO 11/08/25 22:00 11/08/25 21:01 Duloxetine HCl (Cymbalta Capsule) 60 mg DAILY PO 11/09/25 10:00 Trazodone HCl (Desyrel) 100 mg HS PO 11/08/25 22:00 11/08/25 21:00 Review of Systems Constitutional: No symptom reported Ears, Nose, & Throat: No symptom reported Eyes: No symptom reported Neurological: ALOC Pulmonary/Respiratory: No symptom reported Cardiovascular: No symptom reported Gastrointestinal: N/V/D/abdominal cramping Genitourinary: No symptom reported Musculoskeletal: No symptom reported Skin: No symptom reported Psychiatric: No symptom reported Endocrine: No symptom reported Hemotologic/Lymphatic: No symptom reported Vital Signs Vital Signs Date Time Temp Pulse Resp B/P (MAP) Pulse Ox O2 Delivery O2 Flow Rate FiO2 11/09/25 09:14 98.2 66 16 135/92 (106) 97 98.2 11/08/25 20:00 Room Air* 0 N/A Nasal Cannula* Physical Exam General Appearance: Cooperative. Well developed. Obese. In no acute distress Head Exam: Normal inspection Neck Exam: Normal inspection. Non-tender. Normal alignment Pulmonary/Respiratory: Chest non-tender. Clear bilateral breath sounds Cardiovascular/Chest: Regular rate and rhythm. S1, S2. NSR. No murmurs. No JVD. Peripheral Pulses: 2+ Radial (R). 2+ Radial (L). 2+ Pedal (R). 2+ Pedal (L) Abdominal Exam: Normal bowel sounds. Ankle Exam: Negative ankle edema Lower extremities: Negative lower extremity edema Neuro/Mental Status: A&O x4. Coherent Thoughts/Psych: Normal thought pattern. Appropriate mood and affect. Good judgement and insight Appearance: In no acute distress Skin Exam: Normal inspection. Normal color. Warm. Dry Labs/Diagnostic Data Labs Test 11/06/25 02:32 11/05/25 14:03 11/05/25 09:30 11/05/25 07:07 Range/Units White Blood Count 10.0 4.4-10.8 10^3/uL Red Blood Count 4.17 4.0-5.20 10^6/uL Hemoglobin 12.6 12.2-16.2 g/dL Hematocrit 37.5 # 36.0-46.0 % Mean Corpuscular Volume 90.0 80.0-100.0 fL Mean Corpuscular Hemoglobin 30.3 28.0-32.0 pg Mean Corpuscular Hemoglobin Concent 33.7 32.0-36.0 g/dL Red Cell Distribution Width 14.6 H 11.8-14.3 % Platelet Count 186 140-450 10^3/uL Mean Platelet Volume 8.4 6.9-10.8 fL Neutrophils (%) (Auto) 65.8 37.0-80.0 % Lymphocytes (%) (Auto) 24.7 10.0-50.0 % Monocytes (%) (Auto) 7.7 0.0-12.0 % Eosinophils (%) (Auto) 1.4 0.0-7.0 % Basophils (%) (Auto) 0.4 0.0-2.0 % Neutrophils # (Auto) 6.6 1.6-8.6 10 ^3/uL Lymphocytes # (Auto) 2.5 0.4-5.4 10 ^3/uL Monocytes # (Auto) 0.8 0-1.3 10 ^3/uL Eosinophils # (Auto) 0.1 0-0.8 10 ^3/uL Basophils # (Auto) 0 0-0.2 10 ^3/uL Nucleated Red Blood Cells 0.0 % Sodium Level 140 # 136-145 mmol/L Potassium Level 3.4 L 3.5-5.1 mmol/L Chloride Level 109 H 98-107 mmol/L Carbon Dioxide Level 20 20-31 mmol/L Anion Gap 11 5-15 Blood Urea Nitrogen 6 L 9-23 mg/dL Creatinine 0.83 0.550-1.02 mg/dL Glomerular Filtration Rate Calc 77 >90 mL/min BUN/Creatinine Ratio 7.2 L 10.0-20.0 Serum Glucose 101 74-106 mg/dL Calcium Level 8.3 L 8.7-10.4 mg/dL Total Bilirubin 0.8 0.2-1.0 mg/dL Aspartate Amino Transferase (AST) 30 13-40 U/L Alanine Aminotransferase (ALT) 23 7-40 U/L Alkaline Phosphatase 68 46-116 U/L Total Protein 6.4 5.7-8.2 g/dL Albumin 3.7 3.2-4.8 g/dL Troponin I High Sensitivity 87 *H </=34 ng/L Urine Color Yellow Yellow Urine Clarity Clear Clear Urine pH 5.5 5.0-9.0 Urine Specific [place] 1.023 1.001-1.035 Urine Protein 1+ H Negative Urine Ketones 2+ H Negative Urine Blood Negative Negative /uL Urine Nitrite Negative Negative Urine Bilirubin Negative Negative Urine Urobilinogen Normal Negative mg/dL Urine Leukocyte Esterase Negative Negative /uL Urine RBC 2 0 - 4 /hpf Urine Microscopic WBC 1 0-5 /HPF Urine Squamous Epithelial Cells Few <5 /hpf Urine Bacteria None seen None Seen /hpf Urine Mucus Few None Seen Urine Glucose Normal Normal mg/dL Urine Opiates Screen Neg NEGATIVE Urine Fentanyl Screen Neg NEGATIVE Urine Barbiturates Screen Neg NEGATIVE Urine Phencyclidine Screen Neg NEGATIVE Urine Amphetamines Screen Neg NEGATIVE Urine Benzodiazepines Screen Pos NEGATIVE Urine Cocaine Screen Neg NEGATIVE Urine Cannabinoids Screen Pos NEGATIVE POC Glucose 169 H 70-106 mg/dl Microbiology Date/Time Source Procedure Growth Status 11/06/25 12:00 Stool Clostridium difficile Toxin Assay - Final Complete 11/05/25 09:30 Urine - Catheterized Urine Culture - Final Complete Assessment Hypertensive urgency NSTEMI likely type 2 secondary to above Chronic pain syndrome Thyroid disease Obesity Plan/Recommendation (Dr. Fletcher) A transthoracic echocardiogram revealed a LVEF of 60% with normal LV wall motion and normal LV diastolic function. Doubt ACS, the patient presents with a heart score of three (low score for major cardiac events), 12-lead electrocardiograms have no evidence of ischemia, and she is chest pain-free. NSTEMI, likely type 2 secondary to hypertensive urgency. Continue aggressive blood pressure control. There is no further cardiac workup indicated at this time. Kindly call if you need of further recommendations. Thank you for allowing us to participate in this patient's care. This medical document was created using an electronic medical record system with voice recognition software and computerized dictation system. Although this document has been carefully reviewed, there might still be some phonetic and typographical errors. Occasional wrong-word or ``sound-alike substitutions may have occurred due to the inherent limitations of voice recognition software. These areas are purely typographical due to imperfections of the software programs and do not reflect any compromise in the patient's medical care. Please read the chart carefully and recognize, using context, where these substitutions have occurred. Plan discussed with: Patient, Other NYHA Physical activity limitations: NA Date of Service: Nov 09, 2025 Billing Provider: EDER PARSON Cardiology Common Codes: 12700-[id number] INP/OBS CARE (High) EDER PARSON Nov 09, 2025 10:22
[2025-11-09] MEDS: METOPROLOL SUCCINATE XL 50 MG TAB PO SCH (11:06)
[2025-11-09 14:01] LABS: Hematocrit 41.6 % (36.0-46.0); Hemoglobin 14.1 g/dL (12.2-16.2); Mean Corpuscular Hemoglobin 30.8 pg (28.0-32.0); Mean Corpuscular Volume 90.6 fL (80.0-100.0); Nucleated Red Blood Cells % 0.1 %
[2025-11-09 14:12] LABS: Triglycerides 140.0 mg/dL (< 150)
[2025-11-09 14:13] LABS: Magnesium 2.1 mg/dL (1.6-2.6)
[2025-11-09 14:14] LABS: HDL Cholesterol 50.0 mg/dL (40-59)
[2025-11-09 14:15] LABS: Cholesterol 206.0 mg/dL (< 200)
[2025-11-09 14:19] LABS: Alanine Aminotransferase 40 U/L (7-40); Albumin 4.3 g/dL (3.2-4.8); Alkaline Phosphatase 89 U/L (46-116); Anion Gap 10 (5-15); BUN/Creatinine Ratio 11.1 (10.0-20.0); Blood Urea Nitrogen 12 mg/dL (9-23); Calcium 9.4 mg/dL (8.7-10.4); Carbon Dioxide 27 mmol/L (20-31); Chloride 103 mmol/L (98-107); Potassium 3.7 mmol/L (3.5-5.1); Sodium 140 mmol/L (136-145); Total Protein 7.1 g/dL (5.7-8.2)
[2025-11-09 14:20] LABS: Bilirubin, Total 0.4 mg/dL (0.2-1.0)
[2025-11-09 14:21] LABS: Glucose 108 mg/dL (74-106)
[2025-11-09] MEDS ORDERED: METO-6 PO (14:55)
--- NOTE | 2025-11-09 14:56 | DVHDS2 ---
Discharge Summary Date of Admission Nov 05, 2025 at 15:29 Date of Discharge: Nov 09, 2025 Labs/Diagnostic Data: Laboratory Results Test 11/09/25 13:39 11/05/25 09:30 11/05/25 07:07 White Blood Count 8.5 10^3/uL (4.4-10.8) Red Blood Count 4.59 10^6/uL (4.0-5.20) Hemoglobin 14.1 g/dL (12.2-16.2) Hematocrit 41.6 % (36.0-46.0) Mean Corpuscular Volume 90.6 fL (80.0-100.0) Mean Corpuscular Hemoglobin 30.8 pg (28.0-32.0) Mean Corpuscular Hemoglobin Concent 34.0 g/dL (32.0-36.0) Red Cell Distribution Width 14.4 % (11.8-14.3) Platelet Count 265 10^3/uL (140-450) Mean Platelet Volume 8.5 fL (6.9-10.8) Neutrophils (%) (Auto) 57.2 % (37.0-80.0) Lymphocytes (%) (Auto) 32.1 % (10.0-50.0) Monocytes (%) (Auto) 7.0 % (0.0-12.0) Eosinophils (%) (Auto) 3.1 % (0.0-7.0) Basophils (%) (Auto) 0.6 % (0.0-2.0) Neutrophils # (Auto) 4.8 10 ^3/uL (1.6-8.6) Lymphocytes # (Auto) 2.7 10 ^3/uL (0.4-5.4) Monocytes # (Auto) 0.6 10 ^3/uL (0-1.3) Eosinophils # (Auto) 0.3 10 ^3/uL (0-0.8) Basophils # (Auto) 0.1 10 ^3/uL (0-0.2) Nucleated Red Blood Cells 0.1 % Sodium Level 140 mmol/L (136-145) Potassium Level 3.7 mmol/L (3.5-5.1) Chloride Level 103 mmol/L (98-107) Carbon Dioxide Level 27 mmol/L (20-31) Anion Gap 10 (5-15) Blood Urea Nitrogen 12 mg/dL (9-23) Creatinine 1.08 mg/dL (0.550-1.02) Glomerular Filtration Rate Calc 56 mL/min (>90) BUN/Creatinine Ratio 11.1 (10.0-20.0) Serum Glucose 108 mg/dL (74-106) Hemoglobin A1c 5.8 % A1C (<5.7) Calcium Level 9.4 mg/dL (8.7-10.4) Magnesium Level 2.1 mg/dL (1.6-2.6) Total Bilirubin 0.4 mg/dL (0.2-1.0) Aspartate Amino Transferase (AST) 49 U/L (13-40) Alanine Aminotransferase (ALT) 40 U/L (7-40) Alkaline Phosphatase 89 U/L (46-116) Troponin I High Sensitivity 11 ng/L (</=34) Total Protein 7.1 g/dL (5.7-8.2) Albumin 4.3 g/dL (3.2-4.8) Triglycerides Level 140 mg/dL (< 150) Cholesterol Level 206 mg/dL (< 200) LDL Cholesterol 132 mg/dL (< 100) HDL Cholesterol 50 mg/dL (40-59) Thyroid Stimulating Hormone (TSH) 10.88 uIU/mL (0.55-4.78) Urine Color Yellow (Yellow) Urine Clarity Clear (Clear) Urine pH 5.5 (5.0-9.0) Urine Specific [place] 1.023 (1.001-1.035) Urine Protein 1+ (Negative) Urine Ketones 2+ (Negative) Urine Blood Negative /uL (Negative) Urine Nitrite Negative (Negative) Urine Bilirubin Negative (Negative) Urine Urobilinogen Normal mg/dL (Negative) Urine Leukocyte Esterase Negative /uL (Negative) Urine RBC 2 /hpf (0 - 4) Urine Microscopic WBC 1 /HPF (0-5) Urine Squamous Epithelial Cells Few /hpf (<5) Urine Bacteria None seen /hpf (None Seen) Urine Mucus Few (None Seen) Urine Glucose Normal mg/dL (Normal) Urine Opiates Screen Neg (NEGATIVE) Urine Fentanyl Screen Neg (NEGATIVE) Urine Barbiturates Screen Neg (NEGATIVE) Urine Phencyclidine Screen Neg (NEGATIVE) Urine Amphetamines Screen Neg (NEGATIVE) Urine Benzodiazepines Screen Pos (NEGATIVE) Urine Cocaine Screen Neg (NEGATIVE) Urine Cannabinoids Screen Pos (NEGATIVE) POC Glucose 169 mg/dl (70-106) Other Laboratory Tests 11/09/25 13:39 Brief Hx & Hospital Course: 65-year-old female with a known history of previous colon resection status post anastomosis, acute on chronic back pain was recently seen at urgent care was given some baclofen medications for pain presented to the hospital with a altered mental status found to have Acute toxic encephalopathy suspected secondary to baclofen overdose. Patient's hospital course was eventful for nausea and vomiting diarrhea as well. Patient's has a mildly elevated troponin which was thought secondary to demand ischemia. Patient was cleared by Cardiology to be discharged. Patient's diarrhea has been resolved and C diff has been ruled out. Patient was complaining of epigastric pain nausea and vomiting which is currently resolved after starting Protonix. Patient is currently tolerating diet and stable to be discharged. Please follow up with the PCP and GI in 1-2 weeks. Condition at Discharge: Stable Final Diagnosis/Problems List 65-year-old female with a known history of previous colon resection status post anastomosis, acute on chronic back pain was recently seen at urgent care was given some baclofen medications for pain presented to the hospital with a altered mental status found to have 1. Acute toxic encephalopathy suspect baclofen overdose 2. Drug overdose with the baclofen 3. Vomiting and diarrhea without any CT evidence of acute pathology 4. Incidental finding of elevated troponin suspect demand ischemia 5. Acute on chronic back pain 6. Hepatic steatosis 7. Diarrhea, resolved Discharge Disposition: Home with Health Services SNF Discharge Will this Physician continue t: No Discharge Instruct/Medications Diet: Cardiac 2g Na,low cholest Activity: No Restrictions, As Tolerated Follow Up/Referral: Please follow up with the PCP in one week Medications: Medication as prescribed and reconciled. New Medications: Pantoprazole Sodium Sesquihydr (Protonix) 40 Mg Tab 40 MG PO DAILY, #30 TAB Metoprolol Succinate (Toprol Xl) 50 Mg Tab 25 MG PO DAILY, #30 TAB Continued Medications: Albuterol Sulfate (Albuterol Sulfate Hfa) 108 Mcg/Act Aer 108 MCG IN TID PRN, #1 AER Discontinued Medications: Amoxicillin & Pot Clavulanate (Augmentin Tablet) 875 Mg Tb 875 MG PO BID for 7 Days, #14 TAB Prednisone (Prednisone) 20 Mg Tab 20 MG PO DAILY for 5 Days, #5 MG Scheduled Amoxicillin & Pot Clavulanate (Augmentin Tablet), 875 MG PO BID Metoprolol Succinate (Toprol Xl), 25 MG PO DAILY Pantoprazole Sodium Sesquihydr (Protonix), 40 MG PO DAILY Prednisone (Prednisone), 20 MG PO DAILY Scheduled PRN Albuterol Sulfate (Albuterol Sulfate Hfa), 108 MCG IN TID PRN Discharge Statement: "Patient was advised to return to the ER or call 911 if any headaches, dizziness, shortness of breath, chest pain, abdominal pain, bleeding, fevers, or worsening of medical condition. Patient was counseled about treatment plan, medications, possible side effects, patientverbalized understanding. All questions were answered to the best of my ability. This discharge took greater then 30 minutes in planning, reviewing documentation, counseling the patient, and discussing with other team members." ASSESSMENT ASSESSMENT Assessment 65-year-old female with a known history of previous colon resection status post anastomosis, acute on chronic back pain was recently seen at urgent care was given some baclofen medications for pain presented to the hospital with a altered mental status found to have 1. Acute toxic encephalopathy suspect baclofen overdose 2. Drug overdose with the baclofen 3. Vomiting and diarrhea without any CT evidence of acute pathology 4. Incidental finding of elevated troponin suspect demand ischemia 5. Acute on chronic back pain 6. Hepatic steatosis 7. Diarrhea, resolved Date of Service: Nov 09, 2025 Billing Provider: OBINNA RUIZ MD Common Visit Codes: NOT BILLABLE OBINNA RUIZ MD Nov 09, 2025 14:56
[2025-11-09] MEDS ORDERED: PANT40TA2 PO (16:33)
--- NOTE | 2025-11-09 21:02 | DVHINCON2 ---
Date Seen: Nov 09, 2025 Referring Physician MD Valentino Reason for Consultation Elevated troponin History of Present Illness This is a 65-year-old female with a past medical history of hypertension, thyroid disease, chronic back pain, and obesity who presented to the emergency room due to ALOC. At time of assessment the patient was found A&O x4. She is unable to recall events preceding to admission. Per records she was found ALOC by her granddaughter and suspected to have overdose on baclofen tablets. At time of assessment, she complained of nausea, vomiting, diarrhea, and abdominal cramping. Denies chest pain, SOB, palpitations, diaphoresis, or syncopal events. She has undergone multiple 12 lead electrocardiogram revealing a normal sinus rhythm without evidence of ST-T wave segment changes. Serial troponin levels trended up to 80s ng/L. Chest x-ray shows NAD. CT ABD PEL shows no acute noncontrast CT abnormality in the abdomen/pelvis. There is diffuse hepatic steatosis and colon resection with reanastomosis. Patient was admitted to the hospital. I am asked to consult on this patient. Past Medical History Past medical history reviewed. No other significant than mentioned above. Past Surgical History Hysterectomy Cholecystectomy Colon resection with reanastomosis Family History: Depression G8 MOTHER Diabetes mellitus G8 FATHER Hypercholesterolemia G8 MOTHER Hypertension G8 MOTHER Allergies: Coded Allergies: Hydromorphone (Verified Allergy, Unknown, 07/16/24) Morphine (Verified Allergy, Unknown, 07/16/24) Home Meds Active Scripts Pantoprazole Sodium Sesquihydr (Protonix) 40 Mg Tab, 40 MG PO DAILY, #30 TAB Prov:OBINNA RUIZ MD 11/09/25 Metoprolol Succinate (Toprol Xl) 50 Mg Tab, 25 MG PO DAILY, #30 TAB Prov:OBINNA RUIZ MD 11/09/25 Albuterol Sulfate (Albuterol Sulfate Hfa) 108 Mcg/Act Aer, 108 MCG IN TID PRN, #1 AER Prov:NADINE PIZARRO 07/16/24 Discontinued Scripts Prednisone (Prednisone) 20 Mg Tab, 20 MG PO DAILY for 5 Days, #5 MG Prov:NADINE PIZARRO 07/16/24 Amoxicillin & Pot Clavulanate (AUGMENTIN TABLET) 875 Mg Tb, 875 MG PO BID for 7 Days, #14 TAB Prov:NADINE PIZARRO 07/16/24 Current Medications Current Medications Medications (Trade) Dose Ordered Sig/Galindo Route PRN Reason Start Time Stop Time Status Last Admin Pantoprazole Sodium (Protonix) 40 mg BID IV 11/08/25 15:30 11/09/25 11:08 Metoprolol Succinate (Toprol Xl) 25 mg DAILY PO 11/09/25 10:00 11/09/25 11:06 Gabapentin (Neurontin Capsule) 600 mg DAILY PO 11/08/25 22:00 11/09/25 11:04 Duloxetine HCl (Cymbalta Capsule) 60 mg DAILY PO 11/09/25 10:00 11/09/25 11:06 Trazodone HCl (Desyrel) 100 mg HS PO 11/08/25 22:00 11/08/25 21:00 Review of Systems Constitutional: No symptom reported Ears, Nose, & Throat: No symptom reported Eyes: No symptom reported Neurological: ALOC Pulmonary/Respiratory: No symptom reported Cardiovascular: No symptom reported Gastrointestinal: N/V/D/abdominal cramping Genitourinary: No symptom reported Musculoskeletal: No symptom reported Skin: No symptom reported Psychiatric: No symptom reported Endocrine: No symptom reported Hemotologic/Lymphatic: No symptom reported Vital Signs Vital Signs Date Time Temp Pulse Resp B/P (MAP) Pulse Ox O2 Delivery O2 Flow Rate FiO2 11/09/25 11:06 66 135/92 11/09/25 09:14 98.2 16 97 98.2 11/09/25 08:00 Room Air* 0 21 Physical Exam GENERAL: Alert and oriented x 3. No acute distress. Obese. EYES: PERRL, EOMI. Anicteric. HENT: Moist mucous membranes. LUNGS: Clear to auscultation bilaterally. CARDIOVASCULAR: Regular rate and rhythm. ABDOMEN: Soft, nontender and nondistended. EXTREMITIES: No edema. NEUROLOGIC: No focal neurological deficits. SKIN: Warm, dry. Labs/Diagnostic Data Labs Test 11/09/25 13:39 11/05/25 09:30 11/05/25 07:07 Range/Units White Blood Count 8.5 4.4-10.8 10^3/uL Red Blood Count 4.59 4.0-5.20 10^6/uL Hemoglobin 14.1 12.2-16.2 g/dL Hematocrit 41.6 # 36.0-46.0 % Mean Corpuscular Volume 90.6 80.0-100.0 fL Mean Corpuscular Hemoglobin 30.8 28.0-32.0 pg Mean Corpuscular Hemoglobin Concent 34.0 32.0-36.0 g/dL Red Cell Distribution Width 14.4 H 11.8-14.3 % Platelet Count 265 140-450 10^3/uL Mean Platelet Volume 8.5 6.9-10.8 fL Neutrophils (%) (Auto) 57.2 37.0-80.0 % Lymphocytes (%) (Auto) 32.1 10.0-50.0 % Monocytes (%) (Auto) 7.0 0.0-12.0 % Eosinophils (%) (Auto) 3.1 0.0-7.0 % Basophils (%) (Auto) 0.6 0.0-2.0 % Neutrophils # (Auto) 4.8 1.6-8.6 10 ^3/uL Lymphocytes # (Auto) 2.7 0.4-5.4 10 ^3/uL Monocytes # (Auto) 0.6 0-1.3 10 ^3/uL Eosinophils # (Auto) 0.3 0-0.8 10 ^3/uL Basophils # (Auto) 0.1 0-0.2 10 ^3/uL Nucleated Red Blood Cells 0.1 % Urine Color Yellow Yellow Urine Clarity Clear Clear Urine pH 5.5 5.0-9.0 Urine Specific [place] 1.023 1.001-1.035 Urine Protein 1+ H Negative Urine Ketones 2+ H Negative Urine Blood Negative Negative /uL Urine Nitrite Negative Negative Urine Bilirubin Negative Negative Urine Urobilinogen Normal Negative mg/dL Urine Leukocyte Esterase Negative Negative /uL Urine RBC 2 0 - 4 /hpf Urine Microscopic WBC 1 0-5 /HPF Urine Squamous Epithelial Cells Few <5 /hpf Urine Bacteria None seen None Seen /hpf Urine Mucus Few None Seen Urine Glucose Normal Normal mg/dL Urine Opiates Screen Neg NEGATIVE Urine Fentanyl Screen Neg NEGATIVE Urine Barbiturates Screen Neg NEGATIVE Urine Phencyclidine Screen Neg NEGATIVE Urine Amphetamines Screen Neg NEGATIVE Urine Benzodiazepines Screen Pos NEGATIVE Urine Cocaine Screen Neg NEGATIVE Urine Cannabinoids Screen Pos NEGATIVE POC Glucose 169 H 70-106 mg/dl Microbiology Date/Time Source Procedure Growth Status 11/06/25 12:00 Stool Clostridium difficile Toxin Assay - Final Complete 11/05/25 09:30 Urine - Catheterized Urine Culture - Final Complete Assessment Hypertensive urgency. NSTEMI likely type 2 secondary to above. Chronic pain syndrome. Thyroid disease. Obesity. Plan/Recommendation I agree with your ongoing assessment and care of plan. Patient has been seen by Maria Esther Thornton NP on my behalf, her and I discussed the plan with the patient. A transthoracic echocardiogram revealed a LVEF of 60% with normal LV wall motion and normal LV diastolic function. Doubt ACS, the patient presents with a heart score of three (low score for major cardiac events), 12-lead electrocardiograms have no evidence of ischemia, and she is chest pain-free. NSTEMI, likely type 2 secondary to hypertensive urgency. Continue aggressive blood pressure control. There is no further cardiac workup indicated at this time. Additional plan as per the hospital course. Plan discussed with: Patient NYHA Physical activity limitations: NA Date of Service: Nov 09, 2025 Billing Provider: GENIA BELLAMY MD Cardiology Common Codes: 99018-[id number] INP/OBS CARE (High) Cardiology Consultation Codes: [id number] CONSULT <45MIN GENIA BELLAMY MD Nov 09, 2025 14:12
== END 2025-11-09 19:00 | disposition home health service (06) | DRG 917 ==
LOC: ER 06:50 → OVERFLOW 15:29 → TELE-EAST 15:32
PROVIDERS: ADMIT Internal Medicine; ATTEND Internal Medicine
DX: T42.8X1A Poisoning by antiparkinsonism drugs and other central muscle-tone depressants, accidental (unintentional), initial encounter (principal); G92.8 Other toxic encephalopathy; I21.A1 Myocardial infarction type 2; I16.0 Hypertensive urgency; K76.0 Fatty (change of) liver, not elsewhere classified; E66.9 Obesity, unspecified; I25.10 Atherosclerotic heart disease of native coronary artery without angina pectoris; E86.0 Dehydration; G89.4 Chronic pain syndrome; E07.9 Disorder of thyroid, unspecified; Z88.5 Allergy status to narcotic agent; Z79.2 Long term (current) use of antibiotics; Z90.710 Acquired absence of both cervix and uterus; Z90.49 Acquired absence of other specified parts of digestive tract; Z68.29 Body mass index [BMI] 29.0-29.9, adult; Z79.899 Other long term (current) drug therapy; Z83.3 Family history of diabetes mellitus; Z82.49 Family history of ischemic heart disease and other diseases of the circulatory system; Z81.8 Family history of other mental and behavioral disorders; Y92.89 Other specified places as the place of occurrence of the external cause
CPT/HCPCS: 36415; 70450; 71045; 74176; 80053; 80061; 80307; 81001; 82962; 83036; 83735; 84443; 84484; 85025; 87086; 87493; 93005; 93306; 96361; 96374; 96375; 97163; G0378; J2250; J2405; J2470